=== PATIENT | female | born 1965 | race Caucasian/White ===

== ENCOUNTER 2016-07-13 17:39 | Emergency (ER) | payer OTHER ==
[2016-07-13 17:55] LABS: BASOPHIL COUNT 0.1 K/uL (0-0.1); EOSINOPHIL COUNT 0.2 K/uL (0-0.3); HEMATOCRIT 37.7 % (36.0-46.0); IMMATURE GRANULOCYTE (%) 0.5 % (0.0-0.7); IMMATURE GRANULOCYTE COUNT 0.8 K/uL; LYMPHOCYTE COUNT 3.2 K/uL (1.0-2.8); MCH 31.4 PG (29.0-34.0); MCHC 34.5 G/DL (30.0-36.0); MCV 91.1 FL (83-99); MEAN PLAT.VOLUME 9.2 uM^3 (9.5-12.4); MONOCYTE (%) 5.8 % (3-12); MONOCYTE COUNT 0.9 K/uL (0-0.8); NEUTROPHIL (%) 71.3 % (45-76); NEUTROPHIL COUNT 10.9 K/uL (1.8-6.4); PLATELET COUNT 277 K/uL (156-360); RBC DIS.WIDTH-CV 13.8 % (11.8-14.6); RBC DIS.WIDTH-SD 44.8 % (39-53); RED BLOOD COUNT 4.14 M/uL (3.80-5.20); WHITE BLOOD COUNT 15.3 K/uL (4.1-10.2)
[2016-07-13 18:13] LABS: AMYLASE 48 IU/L (1-118); CHLORIDE 106 mEq/L (99-109); POTASSIUM 4.6 mEq/L (3.7-5.4); SODIUM 140 mEq/L (136-147)
[2016-07-13 18:15] LABS: GLUCOSE 154 mg/dL (70-99)
[2016-07-13 18:16] LABS: ANION GAP 11 MEQ/L (2-14)
[2016-07-13 18:18] LABS: SERUM ETHYL ALCOHOL < 10 mg/dL
[2016-07-13 18:19] LABS: GFR ESTIMATE (CALCULATED) 34 mL/min/
[2016-07-13 18:20] LABS: UREA NITROGEN (BUN) 17 mg/dL (9-23)
[2016-07-13 18:22] LABS: LIPASE 13 U/L (1.0-51.0)
[2016-07-13 18:28] LABS: QUANTITATIVE HCG < 4.0 MIU/ML
[2016-07-13 18:52] LABS: INTER. NORMALIZED RATIO 1.9; PROTHROMBIN TIME 20.1 (9.2-11.2); PTT 30.3 (25-32)
[2016-07-13] MEDS ORDERED: PERCOCET 5/31 TABLET PO (19:59)
[2016-07-13] MEDS ORDERED: DILAUDID2 MG PO (20:09)
[2016-07-20] MEDS ORDERED: DILAUDID2 MG PO (15:19)
[2016-07-20] MEDS ORDERED: NEURONTIN400 MG PO (15:20)
[2016-07-20] MEDS ORDERED: TRAMADOL HCL50 MG PO (15:20)
[2016-07-20] MEDS ORDERED: COUMADIN5 MG PO (15:21)
[2016-07-20] MEDS ORDERED: COUMADIN4 MG PO (15:21)
[2016-07-20] MEDS ORDERED: MULTIPLE VITAM1 EACH PO (15:22)
[2016-07-20] MEDS ORDERED: NORVASC10 MG PO (15:22)
[2016-07-20] MEDS ORDERED: SLEEP AID50 MG PO (15:23)
[2016-07-20] MEDS ORDERED: LOVENOX40 MG/0.4 SC (15:25)
== END 2016-07-13 20:38 | disposition home or self-care (01) ==
LOC: TRA 17:39
PROVIDERS: Emergency Medicine
PROC: 2W3QX1Z Immobilization of Right Lower Leg using Splint (ICD-10-PCS; principal; 2016-07-13)
DX: S82.844A Nondisplaced bimalleolar fracture of right lower leg, initial encounter for closed fracture (principal); S20.20XA Contusion of thorax, unspecified, initial encounter; V49.50XA Passenger injured in collision with unspecified motor vehicles in traffic accident, initial encounter
CPT/HCPCS: 71010; 73610; 80048; 81003; 82150; 83690; 84702; 85025; 85610; 85730; 86850; 86900; 86901; 99281; 99284; G0480

== ENCOUNTER → 2016-07-19 | Outpatient (CLI) | payer OTHER ==
[~2016-07-19] MED LIST: COUMADIN4 MG PO; COUMADIN5 MG PO; DILAUDID2 MG PO; LOVENOX40 MG/0.4 SC; MULTIPLE VITAM1 EACH PO; NEURONTIN400 MG PO; NORVASC10 MG PO; PERCOCET 5/31 TABLET PO; SLEEP AID50 MG PO; TRAMADOL HCL50 MG PO
== END | disposition home or self-care (01) ==
LOC: CDC 16:04
DX: R94.31 Abnormal electrocardiogram [ECG] [EKG] (principal); M25.571 Pain in right ankle and joints of right foot; S82.841A Displaced bimalleolar fracture of right lower leg, initial encounter for closed fracture; D68.59 Other primary thrombophilia
CPT/HCPCS: 93000

== ENCOUNTER 2016-07-25 11:05 | Day surgery (SDC) | payer OTHER ==
[~2016-07-25] VITALS: Ht 167.6 cm; Wt 99.8 kg
[2016-07-25 11:48] VITALS: BP 142/79
[2016-07-25 12:32] LABS: PROTHROMBIN TIME 10.6 (9.2-11.2)
[2016-07-25 19:55] VITALS: BP 141/63
[2016-07-25 21:12] VITALS: BP 126/63
== END 2016-07-25 21:46 | disposition home or self-care (01) ==
LOC: SDC 11:05 → 2SOUTH 11:06 → EDSTATUS 11:09 → SDC 11:15
PROVIDERS: Orthopaedic Surgery
DX: S82.841A Displaced bimalleolar fracture of right lower leg, initial encounter for closed fracture (principal); Y92.9 Unspecified place or not applicable; I10 Essential (primary) hypertension; Z86.73 Personal history of transient ischemic attack (TIA), and cerebral infarction without residual deficits; G40.909 Epilepsy, unspecified, not intractable, without status epilepticus; Z79.01 Long term (current) use of anticoagulants
CPT/HCPCS: 73610; 76000; 85610; C1713; J0690; J1100; J1170; J2370; J2405; J2710; J3010; S0020